=== PATIENT | male | born 1995 | race Caucasian/White ===

== ENCOUNTER 2018-07-04 05:57 | Day surgery (SDC) | payer OTHER | END 2018-07-04 10:50 | disposition home or self-care (01) | LOC: AMB-ENDOS 05:57 | DX: D12.8 Benign neoplasm of rectum (principal); D13.2 Benign neoplasm of duodenum ==

== ENCOUNTER 2018-08-07 05:47 | Day surgery (SDC) | payer OTHER ==
[2018-08-07] MEDS ORDERED: HIBICLENS118 ML TOP (08:40)
[2018-08-07] MEDS ORDERED: PERCOCET 5-3251 EACH PO (08:40)
== END 2018-08-07 15:05 | disposition home or self-care (01) ==
LOC: CIR.AMB 05:47
DX: K60.5 Anorectal fistula (principal)